=== PATIENT | male | born 2000 | race African-American/Black ===

== ENCOUNTER 2023-06-17 08:06 | Emergency (ER) | payer BC, SELFPAY ==
[2023-06-17 08:20] VITALS: BP 106/74; PULSE 92; RESP 16; TEMP 37.3; O2SAT 99
--- NOTE | 2023-06-17 08:33 | ED.URI ---
HPI - URI/Sore Throat General Chief Complaint: Upper Respiratory Infection Stated Complaint: Bodyaches;Cough;Fever Time Seen by Provider: 06/17/23 08:25 Source: patient and RN notes reviewed Mode of arrival: ambulatory Limitations: no limitations History of Present Illness HPI Narrative: Patient presents today complaining of a 2 day history of body aches, rhinorrhea, cough, and subjective fever. Currently rates his pain 8/10 and has been taking tylenol with short term relief. Denies known sick contacts, shortness of breath. He is a nonsmoker Related Data Allergies Allergy/AdvReac Type Severity Reaction Status Date / Time No Known Allergies Allergy Verified 06/17/23 08:21 Review of Systems Review of Systems: CONSTITUTIONAL: Denies chills, or sweats.+ body aches, fever EYES: Denies visual changes, redness, or discharge. ENT: Denies congestion, sore throat, or otalgia.+ rhinorrhea CARDIOVASCULAR: Denies chest pain, palpitations, or edema. RESPIRATORY: Denies dyspnea.+ cough GASTROINTESTINAL: Denies abdominal pain, nausea, vomiting, or diarrhea. GENITOURINARY: Denies dysuria or hematuria. SKIN: Denies rash, itching, or wounds. MUSCULOSKELETAL: Denies back pain, joint pain, or myalgia. NEUROLOGIC: Denies headache, numbness, tingling, or weakness. PSYCH: Denies depression or anxiety. PMFSH Comments At time of signature, I have reviewed and agree with nursing past medical, surgical, social and family history unless otherwise noted. Please see nursing chart for further information. There is no relevant family history pertinent to the presenting complaint Exam Narrative: GENERAL: Ill-appearing, well-nourished, and in no acute distress. HEAD: Normocephalic, atraumatic. EYES: EOMI. No redness or drainage. Conjunctivae normal. ENT: Mucous membranes pink and moist. Nares clear with rhinorrhea. TMs normal bilaterally. Throat normal with moderate amount of white postnasal drainage. Uvula midline. NECK: Normal AROM. Supple. No lymphadenopathy. CHEST: No respiratory distress. Clear to auscultation. HEART: Regular rate and rhythm. No murmur appreciated. EXTREMITIES: Normal range of motion. No edema. SKIN: Warm, dry, no rash. Capillary refill normal. Normal skin turgor. NEURO: No focal deficits. Alert and oriented x3. Gait steady. PSYCH: Normal affect. No signs of depression or anxiety. Course Course Level of Care: Express Care Visit Vital Signs Vital signs: Vital Signs Temperature 99.1 F 06/17/23 08:20 Pulse Rate 92 06/17/23 08:20 Respiratory Rate 16 06/17/23 08:20 Blood Pressure 106/74 06/17/23 08:20 Pulse Oximetry 99 06/17/23 08:20 Temperature 99.1 F 06/17/23 08:20 Pulse Rate 92 06/17/23 08:20 Respiratory Rate 16 06/17/23 08:20 Blood Pressure 106/74 06/17/23 08:20 Pulse Oximetry 99 06/17/23 08:20 Reviewed MDM - URI/Sore Throat MDM Narrative Medical decision making narrative: Patient is positive for influenza B. Prescription for Tamiflu sent to pharmacy. Discussed [id number] treatment duration of illness as well. Anticipatory guidance given. Differential Diagnosis Differential diagnosis: Likely upper respiratory infection, viral infection, influenza and other (COVID-19) Lab Data Attestation: I reviewed the patient's lab results. Lab results narrative: COVID-19 negative. Influenza B positive Critical Care Time Critical Care Time Critical Care Time: No Discharge Plan Discharge Clinical Impression: Influenza B Patient Disposition: Home, Self-Care Condition: Stable Instructions: Influenza (ED) Additional Instructions: You have tested positive for influenza B. Please take the Tamiflu as prescribed. Take Tylenol or ibuprofen at home for pain or fever. Make sure your resting and staying hydrated. If you develop chest pain, shortness of breath, or any other worsening symptoms, please go to the ER immediately for further evaluation.
== END 2023-06-17 08:45 | disposition home or self-care (01) ==
PROVIDERS: Emergency Provider Nurse Practitioner
DX: J10.1 Influenza due to other identified influenza virus with other respiratory manifestations (principal); U07.1 COVID-19; J45.909 Unspecified asthma, uncomplicated
CPT/HCPCS: 87426; 87804; 99213; G0463